=== PATIENT | female | born 1955 | race Hispanic/Latino ===

== ENCOUNTER 2018-07-26 10:17 | Outpatient (CLI) | payer OTHER ==
--- NOTE | 2018-07-26 12:18 | BD ---
DEXA BONE MINERAL DENSITY STUDY: HISTORY: Osteoporosis screening. COMPARISON: None. FINDINGS: Lumbar Spine: BMD (g/cm2) L1 1.193 T-Score: 1.8 3.1 L2 1.259 T-Score: 2.1 3.5 L3 1.280 T-Score: 1.8 3.3 L4 1.144 T-Score: 0.8 2.3 L1-L4 1.215 T-Score: 1.5 3.0 WHO classification normal. Femoral Neck: 0.794 T-Score: -0.5 0.6 Total Femur: 1.018 T-Score: 0.6 1.4 WHO classification normal. Impression: Normal bone mineral density. POS: MARIO
== END 2018-07-26 10:18 | disposition home or self-care (01) ==
LOC: BICMAMMO 10:17
PROVIDERS: ATTEND Internal Medicine
DX: Z12.31 Encounter for screening mammogram for malignant neoplasm of breast (principal); Z13.820 Encounter for screening for osteoporosis; R92.1 Mammographic calcification found on diagnostic imaging of breast
CPT/HCPCS: 77063; 77067; 77080